=== PATIENT | male | born 1945 | race Caucasian/White ===

== ENCOUNTER → 2018-09-27 | Outpatient (CLI) | payer OTHER | END | disposition home or self-care (01) | LOC: PCVCCLINIC 13:46 | PROVIDERS: ATTEND Internal Medicine Cardiovascular Disease | DX: I48.91 Unspecified atrial fibrillation (principal); I42.9 Cardiomyopathy, unspecified; I10 Essential (primary) hypertension; Z87.891 Personal history of nicotine dependence | CPT/HCPCS: 93005; G0463 ==

== ENCOUNTER → 2019-03-28 | Outpatient (CLI) | payer OTHER ==
--- NOTE | 2019-03-28 10:33 | PCVCIMAG ---
APPROVED REPORT Study performed: 03/28/2019 09:30:02 EXAM: Comprehensive 2D, Doppler, and color-flow Echocardiogram Patient Location: Echo lab Status: routine BSA: 2.43 HR: 82 bpmBP: 150/82 mmHg Rhythm: NSR w/ frequent PVCs Other Information Study Quality: Adequate Risk Factors: Cardiac Risk Factors: HTN Indications Atrial Fibrillation Cardiomyopathy 2D Dimensions IVSd: 11.64 (7-11mm) LVDd: 53.31 mm PWd: 11.77 (7-11mm)Ascending Ao: 40.18 (22-36mm) LVDs: 44.61 (25-40mm) Left Atrium: 38.57 (27-40mm) Aortic Root: 39.00 mm LV Single Plane 4CH: 49.67 % LV Single Plane 2CH: 53.61 % Biplane EF: 50.6 % Volumes Left Atrial Volume (Systole) Single Plane 4CH: 106.19 mLSingle Plane 2CH: 110.26 mL LA ESV Index: 45.00 mL/m2 Aortic Valve AoV Peak Thomas.: 1.76 m/s AO Peak Gr.: 12.34 mmHgLVOT Max P.81 mmHg LVOT Max V: 1.07 m/s Mitral Valve E/A Ratio: 1.4 MV Decel. Time: 188.15 ms MV E Max Thomas.: 0.74 m/s MV A Thomas.: 0.54 m/s IVRT: 86.51 ms Pulmonary Valve PV Peak Thomas.: 1.09 m/sPV Peak Gr.: 4.79 mmHg Pulmonary Vein P Vein S: 0.52 m/sP Vein A: 0.35 m/s P Vein D: 0.63 m/sP Vein A Dur.: 141.9 msec P Vein S/D Ratio: 0.83 Tricuspid Valve TR Peak Thomas.: 2.94 m/s TR Peak Gr.: 34.64 mmHg Left Ventricle The left ventricle is normal size. There is normal LV segmental wall motion. Mild concentric left ventricular hypertrophy. Left ventricular systolic function is within lower limits of normal. LVEF is 50-55%. Grade II - pseudonormal filling dynamics. Right Ventricle The right ventricle is normal size. The right ventricular systolic function is normal. Atria Left atrium is moderately dilated. Right atrium is moderately dilated. Aortic Valve The aortic valve is normal in structure. No aortic regurgitation is present. There is no aortic valvular stenosis. Mitral Valve The mitral valve is normal in structure. Mild mitral regurgitation. No evidence of mitral valve stenosis. Tricuspid Valve The tricuspid valve is normal in structure. Mild tricuspid regurgitation with PAP of 43 mmHg. Pulmonic Valve The pulmonary valve is normal in structure. There is no pulmonic valvular regurgitation. Great Vessels Aortic root is mildly dilated to 3.9 cm. The ascending aorta is mildly dilated to 4.0 cm. IVC is dilated and collapses >50% with inspiration. Pericardium There is no pericardial effusion. There is no pleural effusion. <Conclusion> The left ventricle is normal size. Mild concentric left ventricular hypertrophy. Left ventricular systolic function is within lower limits of normal. LVEF is 50-55%. Grade II - pseudonormal filling dynamics. The right ventricle is normal size. Left atrium is moderately dilated. Right atrium is moderately dilated. The aortic valve is normal in structure. Mild mitral regurgitation. Mild tricuspid regurgitation with PAP of 43 mmHg.
== END | disposition home or self-care (01) ==
LOC: PCVCIMAG 10:14
PROVIDERS: ATTEND Internal Medicine Cardiovascular Disease
DX: I08.1 Rheumatic disorders of both mitral and tricuspid valves (principal); I48.91 Unspecified atrial fibrillation; I42.9 Cardiomyopathy, unspecified
CPT/HCPCS: 93306

== ENCOUNTER → 2019-09-27 | Outpatient (CLI) | payer OTHER | END | disposition home or self-care (01) | LOC: PCVCCLINIC 13:00 | PROVIDERS: ATTEND Internal Medicine Cardiovascular Disease | DX: I48.91 Unspecified atrial fibrillation (principal); I10 Essential (primary) hypertension; E78.00 Pure hypercholesterolemia, unspecified; E78.5 Hyperlipidemia, unspecified; Z87.891 Personal history of nicotine dependence | CPT/HCPCS: 93005; G0463 ==